=== PATIENT | female | born 1975 | race Caucasian/White ===

== ENCOUNTER 2019-03-13 18:00 | Emergency (ER) | payer SELFPAY ==
[~2019-03-13] VITALS: Ht 170.2 cm; Wt 110.0 kg
[~2019-03-13 18:00] MED LIST: LORTAB 5/500 501 TAB PO; NO HOME MEDICATIONS; PERCOCET 325 MG1 TA2 PO; PHENERGAN 25 TA25 MG PO; PHENERGAN25 MG RC
[2019-03-13 18:09] VITALS: TEMP 98.8
[2019-03-13 18:52] LABS: BASO % 0.4 % (0.0-2.0); EOS # 0.2 (0.0-0.7); EOS % 2.1 % (0-4.0); GRAN # 4.9 (1.4-6.5); GRAN % 63.6 % (42.2-75.2); HEMOGLOBIN 11.8 g/dl (12.5-16.0); LYMPH # 2.1 (1.2-3.4); LYMPH % 27.2 % (20.0-51.0); MEAN CELL VOLUME 85 fl (80.0-100.0); MEAN CORPUSCULAR HEMOGLOBIN 28 pg (27.0-31.0); MEAN CORPUSCULAR HGB CONC 33 g/dl (33.0-37.0); MEAN PLATELET VOLUME 11.4 fl (7.4-10.4); MONO # 0.5 (0.1-0.6); MONO % 6.6 % (1.7-9.3); PLATELET COUNT 182 K/mm3 (130-400); RED BLOOD COUNT 4.18 M/mm3 (4.10-5.30); REDCELL DISTRIBUTION WIDTH-CV 15.5 % (11.5-14.5)
[2019-03-13 19:13] LABS: ALBUMIN 4.6 gm/dL (3.5-5.0); BILIRUBIN,TOTAL 0.4 mg/dL (0.0-1.0); C-REACTIVE PROTEIN 1.1 mg/dL (0.0-0.9); CALCIUM 9.9 mg/dL (8.4-10.2); CREATININE, serum 0.57 (0.52-1.25); POTASSIUM 4.1 mmol/L (3.4-5.0); TOTAL PROTEIN 7.8 gm/dL (6.4-8.2)
[2019-03-13 19:23] LABS: HEMATOCRIT 35.6 % (37.0-47.0)
[2019-03-13 20:59] LABS: COLLECTION METHOD CLEAN CATCH
[2019-03-13 21:08] LABS: MUCOUS Present /lpf; PH 5 (5-8); URINE APPEARANCE Clear; URINE BACTERIA None Seen /hpf; URINE BILIRUBIN Negative (NEGATIVE); URINE BLOOD Negative (NEGATIVE); URINE COLOR Yellow; URINE GLUCOSE Negative (NEGATIVE); URINE KETONE Negative (NEGATIVE); URINE LEUKOCYTE ESTERASE Negative (NEGATIVE); URINE NITRATE Negative (NEGATIVE); URINE PROTEIN(semi-quant) Negative (NEGATIVE); URINE RBC 0-2 /hpf; URINE UROBILINOGEN Negative (NEGATIVE)
[2019-03-13] MEDS ORDERED: NORCO 325 MG-51 TAB PO (22:48)
[2019-03-13] MEDS ORDERED: ZOFRAN ODT4 MG PO (22:48)
[2019-03-13 23:40] VITALS: BP 147/88; PULSE 89
== END 2019-03-13 23:40 | disposition home or self-care (01) ==
LOC: COL.ER 18:00
PROVIDERS: Emergency Medicine; Nurse Practitioner
DX: N83.201 Unspecified ovarian cyst, right side (principal); I10 Essential (primary) hypertension; Z98.890 Other specified postprocedural states
CPT/HCPCS: J1170; J2405; J7030; Q9967

== ENCOUNTER 2020-09-13 09:23 | Emergency (ER) | payer SELFPAY ==
[~2020-09-13] VITALS: Ht 170.2 cm; Wt 109.1 kg
[~2020-09-13 09:23] MED LIST changes: +NORCO 325 MG-51 TAB PO; +ZOFRAN ODT4 MG PO
[2020-09-13 09:28] VITALS: TEMP 97.8
[2020-09-13] MEDS ORDERED: MOTRIN 400400 MG/TAB PO (11:53)
[2020-09-13] MEDS ORDERED: TYLENOL 325MG325 MG PO (11:53)
[2020-09-13] MEDS ORDERED: ROBAXIN 50500 MG/TAB PO (11:53)
[2020-09-13 12:21] VITALS: BP 165/92; PULSE 88
== END 2020-09-13 12:18 | disposition home or self-care (01) ==
LOC: COL.ER 09:23
DX: M79.10 Myalgia, unspecified site (principal); W00.0XXA Fall on same level due to ice and snow, initial encounter
CPT/HCPCS: J1885; J2250; J2270

== ENCOUNTER → 2021-02-06 | Outpatient (CLI) | payer SELFPAY ==
[~2021-02-06] MED LIST changes: +MOTRIN 400400 MG/TAB PO; +PREDNISONE20 MG PO; +ROBAXIN 50500 MG/TAB PO; +TYLENOL 325MG325 MG PO
== END ==
LOC: COL.CARD 09:28
DX: F07.81 Postconcussional syndrome (principal); R20.8 Other disturbances of skin sensation; G47.19 Other hypersomnia; R41.89 Other symptoms and signs involving cognitive functions and awareness

== ENCOUNTER → 2021-03-15 | Outpatient (CLI) | payer SELFPAY | LOC: COL.RAD 10:02 | DX: F07.81 Postconcussional syndrome (principal); G47.33 Obstructive sleep apnea (adult) (pediatric); R41.89 Other symptoms and signs involving cognitive functions and awareness; E55.9 Vitamin D deficiency, unspecified; R51.9 Headache, unspecified; R47.89 Other speech disturbances; I66.9 Occlusion and stenosis of unspecified cerebral artery; I65.29 Occlusion and stenosis of unspecified carotid artery | CPT/HCPCS: Q9967 ==

== ENCOUNTER 2021-05-23 18:35 | Emergency (ER) | payer SELFPAY ==
[~2021-05-23] VITALS: Ht 170.2 cm; Wt 108.2 kg
[~2021-05-23 18:35] MED LIST changes: -PREDNISONE20 MG PO
[2021-05-23] MEDS ORDERED: PREDNISONE20 MG PO (20:21)
[2021-05-23 20:58] VITALS: BP 160/95; PULSE 72; TEMP 98.6
== END 2021-05-23 20:58 | disposition home or self-care (01) ==
LOC: COL.ER 18:35
DX: R21 Rash and other nonspecific skin eruption (principal); R06.02 Shortness of breath; R07.89 Other chest pain; T39.315A Adverse effect of propionic acid derivatives, initial encounter; T45.0X5A Adverse effect of antiallergic and antiemetic drugs, initial encounter; I10 Essential (primary) hypertension
CPT/HCPCS: J0171; J1200; J2930

== ENCOUNTER 2022-08-25 12:45 | Outpatient (RCR) | payer OTHER ==
[~2022-08-25 12:45] MED LIST changes: +PREDNISONE20 MG PO
== END 2022-08-26 | disposition home or self-care (01) ==
LOC: WSST
DX: F07.81 Postconcussional syndrome (principal); R41.3 Other amnesia

== ENCOUNTER → 2022-09-23 | Outpatient (RCR) | payer OTHER | END | disposition home or self-care (01) | LOC: WSST | DX: R41.3 Other amnesia (principal); F07.81 Postconcussional syndrome ==

== ENCOUNTER 2022-10-08 12:45 | Outpatient (RCR) | payer OTHER | END 2022-10-24 | disposition home or self-care (01) | LOC: WSST | DX: F07.81 Postconcussional syndrome (principal); R41.3 Other amnesia; R41.89 Other symptoms and signs involving cognitive functions and awareness ==